=== PATIENT | male | born 1950 | race Caucasian/White ===

== ENCOUNTER 2019-08-25 10:38 | Outpatient (CLI) | payer MEDICARE, SELFPAY ==
[2019-08-25 10:53] LABS: Basophils Absolute Auto 0.07 K/mm3 (0.00-0.10); Eosinophils Absolute Auto 0.32 K/mm3 (0.02-0.50); Eosinophils Percent Auto 4.4 % (1.0-6.0); Hematocrit 47.7 % (37.0-46.0); Hemoglobin 15.9 g/dL (12.4-15.3); Immature Granulocyte Absolute 0.04 K/mm3 (0.00-0.00); Immature Granulocyte Percent A 0.6 % (0.0-0.0); Lymphocytes Percent Auto 26.2 % (18.0-42.0); Mean Corpuscular HGB Conc 33.3 g/dL (32.0-36.0); Mean Corpuscular Hemoglobin 31.8 pg (27.0-31.0); Mean Corpuscular Volume 95.4 fL (78.0-102.0); Mean Platelet Volume 9.7 fl (8.7-11.0); Monocytes Absolute Auto 0.87 K/mm3 (0.10-0.90); Neutrophils Percent Auto 55.8 % (50.0-70.0); Platelet Count Result 255 K/mm3 (150-420); Red Cell Distribution Width 12.9 % (11.6-14.4); White Blood Count 7.2 K/mm3 (4.8-10.8)
[2019-08-25 11:59] LABS: Erythrocyte Sedimentation Rate 18 mm/hr (0-20)
[2019-08-25 12:05] LABS: Alanine Aminotransferase 42 U/L (16-63); Albumin Level 3.6 g/dL (3.4-5.0); Alkaline Phosphatase 60 U/L (46-116); Anion Gap 12.7 mmol/L (7-16); Aspartate Amino Transferase 27 U/L (15-37); Bilirubin,Total 0.4 mg/dL (0.00-1.00); Blood Urea Nitrogen 10 mg/dL (7-18); Calcium 9.1 mg/dL (8.5-10.1); Carbon Dioxide 30 mmol/L (21-32); Chloride 103 mmol/L (98-108); Estimated Glomerular Filt Rate 60; Glucose 113 mg/dL (70-99); Osmolality Calculated 292 mOsm/kg (285-295); Potassium 4.7 mmol/L (3.5-5.1); Sodium 141 mmol/L (136-145)
[2019-08-25 12:22] LABS: CRP < 0.2 mg/dL (0.0-0.9)
[2019-08-25 12:26] LABS: Thyroid Stimulating Hormone Reflex 1.97 u/IU/mL (0.36-3.74)
[2019-08-28 09:19] LABS: SM Antibody <1.0; SM/RNP Antibody <1.0; SS-A <1.0; SS-B <1.0
== END 2019-08-25 10:39 | disposition home or self-care (01) ==
PROVIDERS: PCP Nurse Practitioner Family; Visit Provider Specialist
DX: L29.9 Pruritus, unspecified (principal)
CPT/HCPCS: 36415; 80053; 84443; 85025; 85652; 86038; 86140; 86235

== ENCOUNTER → 2020-09-04 13:09 | Outpatient (CLI) | payer MEDICARE, SELFPAY ==
--- NOTE | ~2020-09-04 | XR_ITS ---
XR hip RT min 2V DATE: 09/04/2020 13:37 INDICATION: Right hip pain TECHNIQUE: AP and lateral views COMPARISON: None FINDINGS: No fracture, dislocation, avascular necrosis or bone destruction. Right hip joint space is relatively well preserved. The pubic symphysis and sacroiliac joints are intact. Femoral artery calcification is noted. IMPRESSION: No significant bony abnormality Reviewed, dictated and finalized at location A.
--- NOTE | ~2020-09-04 | XR_ITS ---
EXAMINATION: XR lumbar spine 2-3V EXAM DATE: 09/04/2020 13:37 INDICATION: Low back pain . TECHNIQUE: Lumber spine frontal, lateral, lateral L5-S1 projections for interpretation. There is no prior study for comparison. FINDINGS: Mild to moderate disc disease L4-S1, mild at the levels above. Moderate lower lumbar facet arthropathy. Mild aortic arterial sclerosis. There are no acute fractures identified. The vertebral bodies are aligned in the AP dimension. Paraspinal soft tissue is unremarkable. Lower thoracic diffus e idiopathic skeletal hyperostosis. Moderate colonic stool. IMPRESSION: Mild to moderate lumbar disc disease. Moderate lower lumbar facet arthropathy. Reviewed, dictated and finalized at location A.
== END ==
PROVIDERS: PCP Family Medicine; Visit Provider Family Medicine
DX: M47.817 Spondylosis without myelopathy or radiculopathy, lumbosacral region (principal)
CPT/HCPCS: 72100; 73502

== ENCOUNTER 2022-01-28 08:18 | Outpatient (CLI) | payer MEDICARE, SELFPAY ==
--- NOTE | ~2022-01-28 | US_ITS ---
EXAMINATION: US aorta DATE: 01/28/2022 08:45 INDICATION: Abdominal aortic aneurysm screening. Risk factors of hypertension, diabetes and obesity. TECHNIQUE: Grayscale, color Doppler, and pulsed Doppler images of the aorta and common iliac arteries were obtained. COMPARISON: None. FINDINGS: The proximal aorta is suboptimally visualized measuring approximately 2.8 cm AP in AP diameter. The m id aorta measures 2.3 cm AP. The distal aorta measures 2.0 cm AP. The right common iliac artery measu res 1.2 cm. The left common iliac artery measures 1.5 cm. IMPRESSION: 1. Normal caliber abdominal aorta. Reviewed, dictated and finalized at location A.
== END 2022-01-28 08:19 | disposition home or self-care (01) ==
LOC: CHSIMG 08:21
PROVIDERS: PCP Family Medicine; Visit Provider Family Medicine
DX: Z13.6 Encounter for screening for cardiovascular disorders (principal)
CPT/HCPCS: 76775

== ENCOUNTER 2023-06-30 14:06 | Outpatient (CLI) | payer MEDICARE, SELFPAY | END 2023-06-30 14:07 | disposition home or self-care (01) | LOC: CHSLAB 14:09 | PROVIDERS: PCP Family Medicine; Visit Provider Specialist | DX: L57.0 Actinic keratosis (principal) | CPT/HCPCS: 88305 ==